=== PATIENT | male | born 1985 | race Caucasian/White ===

== ENCOUNTER 2017-07-19 21:00 | Emergency (ER) | payer MEDICARE, OTHER ==
[~2017-07-19] VITALS: Ht 172.7 cm; Wt 88.5 kg
[2017-07-19 21:35] VITALS: Ht 172.7 cm; Wt 88.5 kg
[2017-07-19] MEDS ORDERED: HYDROCODONE/APAP (5/325) TAB ONE (22:57)
== END 2017-07-19 23:05 | disposition home or self-care (01) ==
LOC: FTE 21:29
DX: B02.9 Zoster without complications (principal)
CPT/HCPCS: 99282